=== PATIENT | male | born 1975 | race Caucasian/White ===

== ENCOUNTER 2019-11-11 07:41 | Day surgery (SDC) | payer OTHER ==
[~2019-11-11 07:41] MED LIST: Acetaminophen 500 MG Tab PO ONE; Gabapentin 300 MG Cap PO ONE; Scopolamine 1.5 MG Transdermal Patch TOP ONE; Sodium Chloride 0.9% 10 ML Syringe FLUSH PRN; ceFAZolin 2 GM in Premix Bag 1 BAG IV ONE
[2019-11-11] MEDS ORDERED: Dexamethasone Sodium Phos/PF 10 MG/ML VIAL IJ ONE (07:42)
[2019-11-11] MEDS ORDERED: Morphine 10 MG/ML SDV IVPUSH ONE (07:42)
[2019-11-11] MEDS ORDERED: Midazolam 1 MG/ML 2 ML SDV IV ONE (07:42)
[2019-11-11] MEDS ORDERED: Ketamine 500 mg/10 ML MDV IV ONE (07:42)
[2019-11-11] MEDS ORDERED: Ropivacaine 0.5% 5 MG/ML 20 ML SDV INJECT ONE (07:42)
[2019-11-11] MEDS ORDERED: Bupivacaine 0.75%/D5W 2 ML Amp INJECT ONE (07:42)
[2019-11-11] MEDS ORDERED: fentaNYL 100 MCG/2 ML SDV IV ONE (07:42)
[2019-11-11] MEDS ORDERED: Lactated Ringers 1,000 ML IV ONE (07:42)
[2019-11-11] MEDS ORDERED: Ondansetron 4 MG/2 ML SDV IVPUSH ONE (07:42)
[2019-11-11] MEDS ORDERED: Propofol 200 MG/20 ML SDV IV ONE (07:42)
[2019-11-11] MEDS ORDERED: Tranexamic Acid 3,000 MG, Sodium Chloride 0.9% 100 ML IRR ONE ×2 (08:30)
[2019-11-11] MEDS ORDERED: Ondansetron 4 MG/2 ML SDV IVPUSH PRN (08:52)
[2019-11-11] MEDS ORDERED: Sennosides 8.6 MG Tab PO PRN (08:52)
[2019-11-11] MEDS ORDERED: Morphine 2 MG/ML Syringe IVPUSH PRN (08:52)
[2019-11-11] MEDS ORDERED: Bisacodyl 5 MG Tab PO PRN (08:52)
[2019-11-11] MEDS ORDERED: Naloxone 0.4 MG/ML SDV IVPUSH PRN (08:52)
[2019-11-11] MEDS ORDERED: diphenhydrAMINE 50 MG/ML SDV IVPUSH PRN (08:52)
[2019-11-11] MEDS ORDERED: Magnesium Hydroxide 400 MG/5 ML Susp 30 ML Cup PO PRN (08:52)
[2019-11-11] MEDS ORDERED: Docusate Sodium 100 MG Cap PO PRN (08:52)
[2019-11-11] MEDS: Lactated Ringers 1,000 ML IV SCH ×2 (09:10→18:08)
[2019-11-11] MEDS: Ropivacaine 49.25 ML, Ketorolac 30 MG, EPINEPHrine 0.5 MG, cloNIDine 80 MCG, Sodium Chl... INJECT SCH ×10 (09:48→10:08)
[2019-11-11] MEDS: Nicotine 21 MG/24 Hr Patch TRDERM SCH (13:21)
[2019-11-11] MEDS: Ketorolac 30 MG/ML SDV IVPUSH SCH ×2 (13:35→22:24)
[2019-11-11] MEDS: Acetaminophen/oxyCODONE 325-5 MG Tab PO PRN ×2 (16:07→23:40)
--- NOTE | 2019-11-11 18:33 | US ---
INDICATION: Right adductor nerve block. ULTRASOUND RFA GUIDANCE: Multiple ultrasonic images and real-time ultrasonic guidance were utilized for right adductor nerve block. MTDD
--- NOTE | 2019-11-11 18:37 | CR ---
INDICATION: Post-op right knee surgery. RIGHT KNEE: Frontal and lateral views of the right knee were obtained 11/11/19 and compared with 11/02/19 pre-op examination. Skin eusebia are noted in place postsurgically. A metal plate has been installed in the medial femoral condyle. No definite complicating process was identified. HANYD
[2019-11-11] MEDS: traMADol 50 MG Tab PO PRN (19:30)
[2019-11-12] MEDS: Lactated Ringers 1,000 ML IV SCH (02:20)
[2019-11-12] MEDS: Acetaminophen/oxyCODONE 325-5 MG Tab PO PRN ×3 (04:51→19:04)
[2019-11-12] MEDS ORDERED: Pantoprazole 40 MG Tab.CR PO SCH (06:00)
[2019-11-12] MEDS: traMADol 50 MG Tab PO PRN ×2 (09:00→15:38)
[2019-11-12] MEDS ORDERED: Aspirin 325 MG Tab.EC PO SCH (09:00)
--- NOTE | 2019-11-12 12:15 | PCM.DCSUM1 ---
Discharge Summary - Hospital Course HPI Initial Comments: 44 yo male patellofemoral arthritis s/p patella fracture Diagnosis: Stroke: No - Discharge Data Discharge Date: 11/12/19 Discharge Disposition: Home, Self-Care 01 Condition: Good - Referral to Home Health Primary Care Physician: PCP None - Discharge Diagnosis/Problem(s) (1) Patellofemoral arthritis of right knee SNOMED Code(s): 243802022 ICD Code: M17.11 - UNILATERAL PRIMARY OSTEOARTHRITIS, RIGHT KNEE Status: Acute Current Visit: Yes - Patient Summary/Data Operative Procedure(s) Performed: patellofemoral resurfacing Complications: none Consults: Consultations 11/11/19 08:52 Respiratory Care Assess and Treatment [CONS] Routine Comment: Physician Instructions: Post-op Pneumonia Prevention 11/11/19 15:00 OT Evaluation and Treatment [CONS] Routine Please Evaluate and Treat. OT Reason for Consult: Strengthening This query below is only for informational purposes and is not editable. Admission Diagnosis/Problem: Knee pain PT Evaluation and Treatment [CONS] Routine Please Evaluate and Treat. PT Reason for Consult: Strengthening Special Instructions: full weight bearing, progress per total knee protocol This query below is only for informational purposes and is not editable. Admission Diagnosis/Problem: Knee pain 11/12/19 09:44 PT Evaluation and Treatment [CONS] Routine Please Evaluate and Treat. PT Reason for Consult: Post op Ortho Surgery Special Instructions: Right leg patellar resurfaced. Outpatient services please. This query below is only for informational purposes and is not editable. Admission Diagnosis/Problem: Knee pain - Patient Instructions Diet: Usual Diet as Tolerated Activity: Apply Ice, As Tolerated, Full Weight Bearing, No Strenuous Activities Driving: Do Not Drive Showering/Bathing: May Shower Wound/Incision Care: Keep Operative Site/Wound Site Clean and Dry, Change Dressing Daily, Do NOT Change Dressing Notify Provider of: Fever, Increased Pain, Swelling and Redness, Drainage, Nausea and/or Vomiting - Discharge Plan *PRESCRIPTION DRUG MONITORING PROGRAM REVIEWED*: Yes *COPY OF PRESCRIPTION DRUG MONITORING REPORT IN PATIENT MARGARITO: No Prescriptions/Med Rec: Acetaminophen/oxyCODONE [Percocet 325-5 MG] 2 tab PO Q6HR PRN #28 tab PRN Reason: Pain (Severe 7-10) Aspirin [Ecotrin EC] 325 mg PO DAILY #30 tab.ec traMADol [Ultram] 50 mg PO Q6H PRN #28 tablet PRN Reason: Pain (Mild 1-3) Home Medications: Home Meds Acetaminophen/oxyCODONE [Percocet 325-5 MG] 2 tab PO Q6HR PRN #28 tab 11/11/19 [ Rx] Aspirin [Ecotrin EC] 325 mg PO DAILY #30 tab.ec 11/11/19 [Rx] traMADol [Ultram] 50 mg PO Q6H PRN #28 tablet 11/12/19 [Rx] Patient Handouts: Knee Pain, Adult, Total Knee Replacement, Care After, Easy-to -Read, Fall Prevention in Hospitals, Adult, Preventing Problems After Surgery, Venous Thromboembolism Prevention, Community-Acquired Pneumonia, Adult, Easy-to- Read - Discharge Summary/Plan Comment DC Time >30 min.: No - General Info Date of Service: 11/12/19 Functional Status: Reports: Pain Controlled, Tolerating Diet, Ambulating, Urinating - Review of Systems General: Reports: No Symptoms HEENT: Reports: No Symptoms Pulmonary: Reports: No Symptoms Cardiovascular: Reports: No Symptoms Gastrointestinal: Reports: No Symptoms Genitourinary: Reports: No Symptoms Musculoskeletal: Reports: Joint Pain, Joint Swelling Skin: Reports: No Symptoms Neurological: Reports: No Symptoms Psychiatric: Reports: No Symptoms - Patient Data Vitals - Most Recent: Last Vital Signs Temp 98.5 F 11/11/19 23:30 Pulse 88 11/11/19 23:30 Resp 16 11/11/19 23:30 BP 108/61 11/11/19 23:30 Pulse Ox 95 11/11/19 23:30 Weight - Most Recent: 293 lb I&O - Last 24 hours: Intake & Output 11/11/19 11/12/19 11/12/19 22:59 06:59 14:59 Intake Total 1320 1072 1300 Output Total 550 600 500 Balance 770 472 800 Lab Results - Last 24 hrs: Laboratory Results - last 24 hr 11/12/19 11/12/19 Range/Units 08:00 08:00 WBC 13.9 H (4.5-12.0) X10-3/uL RBC 4.39 (4.30-5.75) x10(6)uL Hgb 13.0 L (13.5-17.8) g/dL Hct 38.8 (30.0-51.3) % MCV 88.3 (80-96) fL MCH 29.6 (27.7-33.6) pg MCHC 33.5 (32.2-35.4) g/dL RDW 13.0 (11.5-15.5) % Plt Count 240 (125-369) X10(3)uL MPV 9.2 (7.4-10.4) fL Add Manual Diff Yes Neutrophils % (Manual) 82 (46-82) % Band Neutrophils % 1 (0-6) % Lymphocytes % (Manual) 12 L (13-37) % Monocytes % (Manual) 5 (4-12) % Sodium 137 (135-145) mmol/L Potassium 4.7 (3.5-5.3) mmol/L Chloride 101 (100-110) mmol/L Carbon Dioxide 27 (21-32) mmol/L BUN 16 (7-18) mg/dL Creatinine 1.0 (0.70-1.30) mg/dL Est Cr Clr Drug Dosing 107.64 mL/min Estimated GFR (MDRD) > 60 (>60) BUN/Creatinine Ratio 16.0 (9-20) Glucose 280 H D (80-116) mg/dL Calcium 8.7 (8.6-10.2) mg/dL Total Bilirubin 0.3 (0.1-1.3) mg/dL AST 18 D (5-25) IU/L ALT 37 H D (12-36) U/L Alkaline Phosphatase 86 (56-112) IU/L Total Protein 6.8 (6.0-8.0) g/dL Albumin 3.1 L (3.5-5.2) g/dL Globulin 3.7 g/dL Albumin/Globulin Ratio 0.8 Med Orders - Current: Current Medications Aspirin (Ecotrin) 325 mg PO DAILY [facility] Last Admin: 11/12/19 08:57 Dose: 325 mg Bisacodyl (Dulcolax) 10 mg PO DAILY PRN PRN Reason: Constipation Ropivacaine 49.25 ml/Ketorolac Tromethamine 30 mg/Epinephrine HCl 0.5 mg/ Clonidine HCl 80 mcg/ Sodium Chloride 48.45 ml 0 ml INJECT ASDIRECTED [facility] Last Admin: 11/11/19 09:48 Dose: 100 syringe Diazepam (Valium) 5 mg IVPUSH Q6H PRN PRN Reason: Spasms Diphenhydramine HCl (Benadryl) 25 mg IVPUSH Q4H PRN PRN Reason: Itching Docusate Sodium (Colace) 100 mg PO BID PRN PRN Reason: Constipation Lactated Ringer's (Ringers, Lactated) 1,000 mls @ 125 mls/hr IV ASDIRECTED [facility] Last Admin: 11/12/19 02:20 Dose: 125 mls/hr Magnesium Hydroxide (Milk Of Magnesia) 30 ml PO BID PRN PRN Reason: Constipation Morphine Sulfate (Morphine) 2 mg IVPUSH Q2H PRN PRN Reason: Breakthrough Pain Naloxone HCl (Narcan) 0.1 mg IVPUSH ONETIME PRN PRN Reason: Oversedation Nicotine (Habitrol) 21 mg TRDERM Q24H [facility] Last Admin: 11/11/19 13:21 Dose: 21 mg Ondansetron HCl (Zofran) 4 mg IVPUSH Q4H PRN PRN Reason: Nausea/Vomiting Oxycodone/Acetaminophen (Percocet 325-5 Mg) 2 tab PO Q4H PRN PRN Reason: Pain (moderate 4-6) Last Admin: 11/12/19 04:51 Dose: 2 tab Pantoprazole Sodium (Protonix) 40 mg PO DAILY@0600 [facility] Last Admin: 11/12/19 05:04 Dose: 40 mg Senna (Senna) 8.6 mg PO BID PRN PRN Reason: Constipation Sodium Chloride (Saline Flush) 10 ml FLUSH ASDIRECTED PRN PRN Reason: Keep Vein Open Last Admin: 11/12/19 09:00 Dose: 10 ml Tramadol HCl (Ultram) 100 mg PO Q6H PRN PRN Reason: Pain (mild 1-3) Last Admin: 11/12/19 09:00 Dose: 100 mg Discontinued Medications Acetaminophen (Tylenol Extra Strength) 1,000 mg PO ONETIME ONE Stop: 11/11/19 07:31 Last Admin: 11/11/19 08:55 Dose: 1,000 mg Tranexamic Acid 3,000 mg/ (Sodium Chloride 100 ml) 0 mg IRR ONETIME ONE Stop: 11/11/19 08:31 Last Admin: 11/11/19 09:48 Dose: 100 irr Gabapentin (Neurontin) 300 mg PO ONETIME ONE Stop: 11/11/19 07:31 Last Admin: 11/11/19 08:55 Dose: 300 mg Cefazolin Sodium/Dextrose 2 gm (/ Premix) 50 mls @ 100 mls/hr IV ONETIME ONE Stop: 11/11/19 07:59 Last Admin: 11/11/19 09:16 Dose: 100 mls/hr Ketorolac Tromethamine (Toradol) 30 mg IVPUSH Q8H SHAY Stop: 11/11/19 21:16 Last Admin: 11/11/19 22:24 Dose: 30 mg Scopolamine (Transderm-Scop) 1.5 mg TOP ONETIME ONE Stop: 11/11/19 07:31 Last Admin: 11/11/19 08:55 Dose: 1.5 mg - Exam General: Reports: Alert, Oriented HEENT: Reports: Pupils Equal, Pupils Reactive, EOMI, Mucous Membr. Moist/[place]: Reports: Supple, Trachea Midline Lungs: Reports: Normal Respiratory Effort Extremities: Leg Pain, Limited Range of Motion, Increased Warmth Skin: Reports: Warm, Dry, Intact Wound/Incisions: Reports: Healing Well, Dressing Dry and Intact, No Drainage Neurological: Reports: No New Focal Deficit Psy/Mental Status: Reports: Alert, Normal Affect, Normal Mood Discharge Operative/Procedures - Procedures Performed Operations: right patellofemoral resurfacing
[2019-11-12] MEDS: Nicotine 21 MG/24 Hr Patch TRDERM SCH (13:03)
--- NOTE | 2019-11-30 15:17 | PCM.OPNOTE ---
- General Post-Op/Procedure Note Date of Surgery/Procedure: 11/11/19 Operative Procedure(s): right patellofemoral arthroplasty Pre Op Diagnosis: right patellofemoral arthritis Post-Op Diagnosis: Same Anesthesia Technique: Combo Spinal/Epidural, Moderate Sedation Primary Surgeon: Omi Carranza EBL in mLs: 50 Complications: None Condition: Good
--- NOTE | 2019-12-01 07:57 | OR ---
DATE OF OPERATION: 11/11/2019 SURGEON: Omi Carranza DO PREOPERATIVE DIAGNOSIS: Right knee patellofemoral arthritis. POSTOPERATIVE DIAGNOSIS: Right knee patellofemoral arthritis. PROCEDURE: Right knee patellofemoral arthroplasty. FLUID: Lactated Ringer solution. ESTIMATED BLOOD LOSS: 50 mL. COMPLICATIONS: None. SPECIMEN: None. DISCHARGE DISPOSITION: Stable to PACU. INSTRUMENTATION: Arthrosurface 30 mm, 9 mm domed polyethylene patella; a 36 x 35 PF XL femoral component 7.0 x 5.0 mm, and taper post 11 mm diameter x 21.5 mm large PF XL. HISTORY AND INDICATIONS FOR THE PROCEDURE: The patient is well known to me. We had seen him in the clinic. [facility] Preoperative imaging confirmed the above-mentioned diagnosis. Risks and goals of the procedure were explained to the patient, and informed consent was obtained. DETAILS OF PROCEDURE: The patient was seen preoperatively by myself and the Anesthesia staff in preoperative holding where the operative site was marked. He was brought to the operative suite by Anesthesia staff where spinal sedation was administered plus conscious sedation. A well-padded tourniquet was placed on the right thigh. The right lower extremity was then prepped and draped in a sterile manner. Time-out was called identifying the correct patient, correct procedure, correct site, and the antibiotics were begun within appropriate period of time. A midline incision was made extending 3 fingerbreadths proximal to the patella down the level of the tibial tubercle. Medial parapatellar arthrotomy was then made. The patella was everted. Two perpendicular cuts were then made. This measured 30 mm patella. I then drilled my holes for cementing and place and then cemented it in place. I then used a saw and then cut off the lateral patellar facet. I then removed any extra osteophytes I could find. We then focused on the femur. The femoral cutting guide was then placed and measured, both for the curvature and the length and width. We then drilled the K-wire down. With the knee in 90 degrees of flexion, the drill guide was then placed over the guide pin and then drilled to appropriate depth. The step drill was then placed over the guide pin and taken flush to the articular surface. The [employer] In[employer] was then placed onto the taper post, and the taper post was then advanced. The trial cap was then inserted. This provided good clearance. I did use the tower system to make 2 cuts into the trochlea as well. I then removed the trial and placed my femoral component onto the post and tamped it into appropriate depth. Having accomplished our goals, I then irrigated copiously with saline and then closed my parapatellar arthrotomy with #2 Stratafix followed by subcutaneous closure with Stratafix followed by skin eusebia followed by sterile dressing. Tourniquet was used during the procedure and let down after the arthrotomy had been closed. The patient was then allowed to awaken from conscious sedation and taken to the PACU in stable condition. /[id number] BS/KAMARI
== END 2019-11-12 19:25 | disposition home or self-care (01) ==
LOC: FB.SDS 07:41 → FB.MS 15:03 → FB.SDS 11-12 19:25
PROVIDERS: ATTEND Orthopaedic Surgery
DX: M17.11 Unilateral primary osteoarthritis, right knee (principal)
CPT/HCPCS: 27442; 36415; 73560; 80053; 85025; 86850; 86900; 86901; 93971; 94150; 97161; 97166; 97530; 97535; A9270; C1713; C1776; J0171; J0690; J0735; J1100; J1885; J2250; J2270; J2405; J2704; J2795; J3010; J7050; J7120

== ENCOUNTER 2022-04-23 17:30 | Emergency (ER) | payer OTHER ==
[2022-04-23] MEDS: Sodium Chloride 0.9% 1,000 ML IV ONE (18:34)
[2022-04-23] MEDS: Ketorolac 30 MG/ML SDV IVPUSH ONE (18:37)
[2022-04-23] MEDS: Ondansetron 4 MG/2 ML SDV IVPUSH ONE (18:37)
[2022-04-23 18:42] LABS: ESTIMATED GFR 107 mL/min (>60)
[2022-04-23] MEDS: Iopamidol 755 MG/ML 150 ML Bottle IV ONE (19:11)
[2022-04-23] MEDS: predniSONE 20 MG Tab PO ONE (20:24)
[2022-04-23] MEDS: metroNIDAZOLE 500 MG Tab PO ONE (20:24)
[2022-04-23] MEDS: Ciprofloxacin 500 MG Tab PO ONE (20:24)
== END 2022-04-23 20:40 | disposition home or self-care (01) ==
LOC: FB.ED 17:30
DX: K52.9 Noninfective gastroenteritis and colitis, unspecified (principal); K83.1 Obstruction of bile duct; E11.65 Type 2 diabetes mellitus with hyperglycemia; R79.82 Elevated C-reactive protein (CRP); D72.829 Elevated white blood cell count, unspecified; R50.9 Fever, unspecified; Z86.16 Personal history of COVID-19; Z79.82 Long term (current) use of aspirin; Z20.822 Contact with and (suspected) exposure to COVID-19
CPT/HCPCS: 74177; 80053; 81001; 85025; 86140; 96361; 96374; 96375; 99283; 99285-25; A9270-GY; J1885; J2405; J7030; J7512; Q9967; U0002

== ENCOUNTER 2023-03-16 01:55 | Emergency (ER) | payer OTHER ==
[2023-03-16] MEDS ORDERED: Amoxicillin 500 MG Cap PO ONE (01:56)
[2023-03-16] MEDS ORDERED: Acetaminophen/HYDROcodone 325-5 MG Tab PO ONE (01:56)
== END 2023-03-16 02:30 | disposition home or self-care (01) ==
LOC: FB.ED 01:55
DX: K04.7 Periapical abscess without sinus (principal); E11.9 Type 2 diabetes mellitus without complications; Z86.16 Personal history of COVID-19; Z79.82 Long term (current) use of aspirin
CPT/HCPCS: 99282; A9270

== ENCOUNTER 2023-03-16 09:24 | Emergency (ER) | payer OTHER ==
[2023-03-16] MEDS ORDERED: Ketorolac 30 MG/ML SDV IM ONE (09:53)
[2023-03-16] MEDS ORDERED: Lidocaine 2% Viscous Solution 15 ML UD PO ONE (09:54)
== END 2023-03-16 11:10 | disposition home or self-care (01) ==
LOC: FB.ED 09:24
DX: K04.7 Periapical abscess without sinus (principal); K05.6 Periodontal disease, unspecified; E11.9 Type 2 diabetes mellitus without complications; Z79.82 Long term (current) use of aspirin; Z86.16 Personal history of COVID-19
CPT/HCPCS: 96372; 99282; A9270; J1885